=== PATIENT | female | born 1985 | race Two or more races ===

== ENCOUNTER 2021-06-20 08:07 | Outpatient (REF) | payer OTHER, SELFPAY ==
[2021-06-24 05:22] LABS: HPV 16 RNA NOT DETECTED (NOT DETECTED); HPV mRNA E6/E7 rflx Detected (Not Detected)
== END 2021-06-20 08:08 | disposition home or self-care (01) ==
LOC: HO.LAB 08:07
PROVIDERS: PCP Internal Medicine; Visit Provider Advanced Practice Midwife
DX: Z01.411 Encounter for gynecological examination (general) (routine) with abnormal findings (principal); Z11.51 Encounter for screening for human papillomavirus (HPV); N88.9 Noninflammatory disorder of cervix uteri, unspecified
CPT/HCPCS: 87624; 87625; 88142

== ENCOUNTER 2021-07-04 13:40 | Outpatient (REF) | payer OTHER, SELFPAY ==
[2021-07-04 16:36] LABS: Glucose Urine UA NEG (NEG); Leukocyte Esterase Urine NEG (NEG); Nitrite Urine NEG (NEG); Specific Gravity - Urine 1.025 (1.005-1.025); Urine Blood NEG (NEG); Urine Ketones 15 MG/DL (NEG); Urine Protein NEG (NEG-TRACE)
[2021-07-04 16:39] LABS: Appearance Urine CLEAR; Color Urine YELLOW
[2021-07-04 16:40] LABS: Hematocrit 45.7 % (37-47); Hemoglobin 15.5 g/dl (12.0-16.0); Mean Corpuscular HGB Conc 33.9 g/dl (31.0-35.0); Mean Corpuscular Hemoglobin 30.8 pg (27.0-33.0); Mean Corpuscular Volume 90.7 fL (80-98); Mean Platelet Volume 10.8 fL (9.4-12.3); Platelet Count 309 X10*3/uL (160-400); Red Blood Count 5.04 X10*6/uL (4.20-5.50); Red Cell Distribution Width 12.1 % (11.0-16.0); White Blood Count 6.5 X10*3/uL (4.8-10.8)
[2021-07-04 16:48] LABS: Bacteria Urine 1+ /LPF; Calcium Oxalate Crystals Urine 1+ /LPF; RBC Urine 0-2 /HPF (0); Squamous Epithelial Cell Urine 1+ /LPF; WBC Urine 0-2 /HPF (0-4)
[2021-07-04 17:07] LABS: Alanine Aminotransferase 16 U/L (0-31); Albumin Level 4.3 g/dL (3.5-5.0); Alkaline Phosphatase 85 U/L (39-117); Anion Gap 19 (12-20); Aspartate Amino Transferase 19 U/L (5-31); Bilirubin Total 0.5 mg/dL (0.0-1.0); Blood Urea Nitrogen 11 mg/dL (9-16); Calcium 9.9 mg/dL (8.4-10.2); Carbon Dioxide 24 mmol/L (22-29); Chloride 103 mmol/L (96-108); Cholesterol 158 mg/dL; Estimated Glomerular Filt Rate > 60; Glucose Fasting 81 mg/dL (60-99); HDL Cholesterol 49 mg/dL; Iron 98 mcg/dL (30-160); LDL Cholesterol Calculated 90 mg/dl; Percent Iron Saturation 30 % (15-50); Potassium 4.4 mmol/L (3.3-5.1); Sodium 142 mmol/L (135-145); Total Iron Binding Capacity 328 mcg/dL (228-428); Triglycerides 95 mg/dL; Unsaturated Iron Binding 230 ug/dL
[2021-07-04 17:23] LABS: TSH reflex Free T4 0.96 uIU/mL (0.32-4.0)
[2021-07-04 17:24] LABS: Rheumatoid Factor < 15.0 IU/mL (<15.0)
[2021-07-05 14:41] LABS: Lyme Abs Screen <0.90 index
[2021-07-06 10:41] LABS: Anti DNA DS Antibody 3 IU/mL
[2021-07-06 14:21] LABS: Anti Nuclear Antibody Screen NEGATIVE (NEGATIVE)
[2021-07-06 21:11] LABS: Cyclic Citrullinated Peptide <16 UNITS
== END 2021-07-04 13:41 | disposition home or self-care (01) ==
LOC: HO.HMGCLDS 13:40
PROVIDERS: Internal Medicine; PCP Internal Medicine; Visit Provider Internal Medicine
DX: Z00.00 Encounter for general adult medical examination without abnormal findings (principal); M25.50 Pain in unspecified joint; R40.0 Somnolence; R53.83 Other fatigue
CPT/HCPCS: 36415; 80053; 80061; 81001; 83540; 84443; 85027; 86038; 86039; 86200; 86225; 86431; 86617; 86618

== ENCOUNTER → 2021-07-19 14:47 | Outpatient (REF) | payer OTHER, SELFPAY | LOC: HO.SL 14:47 | PROVIDERS: PCP Internal Medicine; Visit Provider Internal Medicine | DX: Z00.00 Encounter for general adult medical examination without abnormal findings (principal); M25.50 Pain in unspecified joint; R40.0 Somnolence; R53.83 Other fatigue | CPT/HCPCS: 95806 ==

== ENCOUNTER 2021-07-21 08:23 | Outpatient (REF) | payer OTHER, SELFPAY ==
[2021-07-21 09:06] LABS: COVID-19 Test Negative (Negative)
== END 2021-07-21 08:24 | disposition home or self-care (01) ==
LOC: HO.LAB 08:23
PROVIDERS: PCP Internal Medicine; Visit Provider Internal Medicine
DX: Z20.822 Contact with and (suspected) exposure to COVID-19 (principal)
CPT/HCPCS: 36415; 87635; C9803

== ENCOUNTER 2022-06-21 11:26 | Outpatient (REF) | payer OTHER, SELFPAY ==
[2022-06-22 09:19] LABS: BV Int Neg Control Negative (Negative); BV Int Pos Control Positive (Positive)
[2022-06-28 04:45] LABS: HPV mRNA E6/E7 rflx Not Detected (Not Detected)
== END 2022-06-21 11:27 | disposition home or self-care (01) ==
LOC: HO.LAB 11:26
PROVIDERS: Visit Provider Advanced Practice Midwife
DX: Z01.419 Encounter for gynecological examination (general) (routine) without abnormal findings (principal); N90.89 Other specified noninflammatory disorders of vulva and perineum
CPT/HCPCS: 87480; 87510; 87624; 87660; 88142

== ENCOUNTER 2022-09-21 08:29 | Emergency (ER) | payer OTHER, SELFPAY ==
[2022-09-21 08:33] VITALS: BP 151/98; PULSE 102; RESP 16; TEMP 36.6; O2SAT 100; BMI 31.9
--- NOTE | 2022-09-21 09:11 | ED.LOWEXIN ---
HPI - Extremity Injury (Lower) General Chief Complaint: Extremity Injury, Lower Stated Complaint: Left Foot Pain No Injury Time Seen by Provider: 09/21/22 08:54 Source: patient Mode of arrival: ambulatory Limitations: no limitations History of Present Illness HPI Narrative: 36-year-old female presents today to the emergency department complaining of 2 months of bilateral foot pain that has worsened over the last couple days, with more pain on her left foot. She reports that when walking she feels sharp pain around her heels that radiates up towards her toes and up the back of her legs. Typically, the pain is rated as a 7/10 but today she rates it as a 10/10. She has tried icing, resting, and Tylenol which appears to help some. She denies injury or trauma to the site. She has not seen another medical provider for this issue. Her medical history is significant for a ventricle septal defect, but she is otherwise healthy, and she takes no medications. MD complaint: foot injury (Bilateral heel pain) Onset (ago): month(s) (2) Injury: Bilateral: foot Severity: severe Severity scale (1-10): 10 Relieving factors: cold therapy, rest and other (Tylenol) Exacerbating factors: weight bearing and movement Other symptoms: none Related Data Previous Rx's Medication Instructions Recorded prednisone 20 mg tablet 60 mg PO DAILY 5 days #15 tabs 09/21/22 Allergies Allergy/AdvReac Type Severity Reaction Status Date / Time No Known Allergies Allergy Verified 06/21/22 10:55 [No Known Allergies*] Review of Systems Review of Systems: Yes all other systems are reviewed and are negative Musculoskeletal: Musculoskeletal: Reports as per HPI [facility] Past Medical History [facility] Narrative: Past medical history: Ventricular septal defect surgical history: None obtained social history: Works in retail Medical History Annual physical exam Daytime somnolence Fatigue Heart murmur Joint pain Tinnitus of right ear VSD (ventricular septal defect) Surgical History H/O bilateral breast reduction surgery Hx of tubal ligation Family History Family History Father No problems noted. Mother Hypertension Diabetes Brother Mental health disorder Substance use disorder Social History Social History Household Members Other:: , 2children (13.8), well balnced diet, works unloading trucks Housing: House Alcohol intake: current Alcohol intake frequency: holidays/special occasions only Patient Tobacco Use Status: Never used Tobacco e-Cigarette/Vaping Use: Never Used Second Hand Smoke Exposure: No Advance Directives: No Advance Directives Information Provided: Yes Current occupational status: employed Sexual orientation: Straight/Heterosexual Gender identity: Female Physical Exam Vital Signs: Vital Signs: Last Vital Signs Temp 98 F 09/21/22 08:33 Pulse 102 H 09/21/22 08:33 Resp 16 09/21/22 08:33 BP 151/98 H 09/21/22 08:33 Pulse Ox 100 09/21/22 08:33 O2 Del Method 09/21/22 08:33 BMI result Body Mass Index 31.9 Const: Other: Well-appearing female, cooperative, no acute distress, answers all questions appropriately Extrem: Other: Bilateral feet normal on inspection, full range of motion. Right minimally diffusely tender, no erythema no increased warmth. Left is moderately tender over the heel and ball of foot, no erythema, no increased warmth. she was able to walk some with some pain on her left foot. Course Course Course Narrative: 36-year-old female presents today to emergency depart it with a complaint of 2 months of bilateral foot pain. The past 2 days the pain is been getting worse in both feet particularly in the left. She describes the pain as sharp it radiates to her toes and up the back of her legs. Tylenol, icing, and resting appears to help, that walking makes it worse. 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 Physical exam is consistent with bilateral plantar fasciitis worse than the left. Patient was advised to start prednisone 60 mg once a day for 5 days and then continue with ibuprofen 600 mg TID as needed for pain. She is encouraged to stretch both feet and rest from work for 3 days. Discharge Plan Discharge Clinical Impression: Bilateral plantar fasciitis Patient Disposition: Home, Self-Care Instructions: Plantar Fasciitis (ED), Plantar Fasciitis Exercises (ED) Additional Instructions: Your diagnosis is consistent with plantar fasciitis, which is inflammation of the lining of your muscles. Take prednisone 20 mg pills, 3 pills once a day for 5 days. Ice your feet for 15 minutes 4 times a day. You can take ibuprofen 600 mg 3 times a day. You can also continue to take Tylenol if needed. Follow-up with your doctor in 2 days. Please return to the emergency department if your symptoms get worse or if you develop any symptoms that are concerning to you. See work note Prescriptions: New prednisone 20 mg tablet 60 mg PO DAILY 5 Days Qty: 15 0RF Stand Alone Forms: Work/School Release
== END 2022-09-21 09:48 | disposition home or self-care (01) ==
PROVIDERS: Emergency Provider Emergency Medicine Emergency Medical Services; PCP Internal Medicine
DX: M72.2 Plantar fascial fibromatosis (principal); M79.672 Pain in left foot
CPT/HCPCS: 99282; 99283